=== PATIENT | female | born 1935 | race American Indian/Alaskan Native ===

== ENCOUNTER 2018-02-03 11:23 | Inpatient (IN) | payer OTHER ==
[2018-02-03 11:45] VITALS: BMI 26.2
--- NOTE | 2018-02-03 12:39 | PDOC ---
History of Present Illness - General Chief Complaint: Chest Pain Stated Complaint: BACK PAIN SHOULDER PAIN /PCP SENT Time Seen by Provider: 02/03/18 11:51 History Source: Patient, Family (daughter) Exam Limitations: No Limitations - History of Present Illness Initial Comments: 02/03/18 12:23 Pt is an 82 yo F with pmh of mitral regurgitation/prolapse s/p mitral valve replacement 2015, htn, hld sent to ED by Dr. Mckay. Per daughter pt had come back from [place] a month ago and since then she has been having intermittent shoulder pain which feels like a heavy weight on her bilateral shoulders and lower back pain which she cannot describe and lasts for about an hour. Pt experienced the pain over the weekend and per daughter, pt does not complain much about pain so she called Dr. Feliz and saw him today. At the office, Dr. Feliz noticed EKG changes and told pt to come to ED for admission. Pt admits to intermittent bilateral shoulder "pressure", intermittent bilateral lower back pain that does not radiate. Pain is relieved with rest. She also admits to shortness of breath with exertion however this has been going on for about 2 months. She denies chest pain, headache, changes in vision, fever, chills, cough, n/v/d, history of blood clots. She was started back up on Coumadin 3 weeks ago after YUAN showed what may have been vegetations. PCP: Dr. Brand Marshmallow Runner: Trini PMH: see hpi PSH: cholecystectomy, tubal ligation, mitral valve replacement Meds: Coumadin, metoprolol, losartan, lasix, statin Allergies: nkda Social: denies, social alcohol use. Daughter phone number: Past History - Past Medical History Allergies/Adverse Reactions: Allergies Allergy/AdvReac Type Severity Reaction Status Date / Time No Known Drug Allergies Allergy Verified 02/03/18 11:42 Home Medications: Ambulatory Orders Aspirin [ASA -] 81 mg PO DAILY 02/12/12 Acetaminophen [Tylenol] 650 mg PO Q6H PRN 02/21/15 Metoprolol Succinate [Toprol Xl] 50 mg PO DAILY 02/21/15 Simvastatin 40 mg PO DAILY 02/21/15 Albuterol 2.5/Ipratropium 0.5 [Duoneb -] 1 amp NEB Q6H PRN #1 amp 02/28/15 Azithromycin [Zithromax Z-LORA (5 DAYS) -] 250 mg PO ASDIR 03/18/15 Furosemide [Lasix -] 40 mg PO DAILY 03/18/15 Anemia: No Asthma: No Cancer: No Cardiac Disorders: Yes (PERICARDIAL EFFUSION) CVA: No COPD: No CHF: No Dementia: No Diabetes: No GI Disorders: No Disorders: No HTN: Yes Hypercholesterolemia: Yes Liver Disease: No Seizures: No Thyroid Disease: No - Surgical History Abdominal Surgery: Yes Appendectomy: No Cardiac Surgery: Yes (VALVE REPLACEMENT.) Cholecystectomy: Yes Lung Surgery: No Neurologic Surgery: No Orthopedic Surgery: No - Suicide/Smoking/Psychosocial Hx Smoking History: Never smoked Have you smoked in the past 12 months: No Hx Alcohol Use: No Drug/Substance Use Hx: No Substance Use Type: None Hx Substance Use Treatment: No Review of Systems - Review of Systems Able to Perform ROS?: Yes Constitutional: No: Chills, Fever, Weakness HEENTM: No: Blurred Vision, Recent change in vision, Throat Pain Respiratory: Yes: SOB with Exertion. No: Cough, SOB at Rest, Wheezing, Productive cough, Hemoptysis Cardiac (ROS): No: Chest Pain, Lightheadedness, Palpitations, Syncope ABD/GI: No: Constipated, Diarrhea, Nausea, Rectal Bleeding, Vomiting, Abdominal cramping : No: Burning, Dysuria, Frequency, Flank Pain Musculoskeletal: Yes: Back Pain. No: Joint Pain, Muscle Pain, Muscle Weakness Integumentary: No: Rash Neurological: Yes: Numbness (chronic numbness in hands). No: Headache, Paresthesia, Tingling, Tremors, Weakness, Unsteady Gait Hematologic/Lymphatic: No: Blood Clots *Physical Exam - Vital Signs Last Vital Signs Temp Pulse Resp BP Pulse Ox 98.8 F 67 16 166/66 98 02/03/18 11:42 02/03/18 11:42 02/03/18 11:42 02/03/18 11:42 02/03/18 11:42 - Physical Exam Comments: 02/03/18 13:06 Pt sitting in bed comfortably with daughter at bedside General Appearance: Yes: Nourished, Appropriately Dressed. No: Apparent Distress HEENT: positive: EOMI, CHICA, Pharynx Normal, Hearing Grossly Normal. negative: Pale Conjunctivae, Scleral Icterus (R), Scleral Icterus (L), Pharyngeal Erythema , Tonsillar Exudate Neck: positive: Trachea midline, Supple. negative: Carotid bruit, Lymphadenopathy (R), Lymphadenopathy (L) Respiratory/Chest: positive: Lungs Clear, Normal Breath Sounds. negative: Labored Respiration, Crackles, Rales, Rhonchi, Stridor, Wheezing, Plerual Rub Cardiovascular: positive: Regular Rhythm, Regular Rate, S1, S2. negative: Edema , JVD, Murmur, Bradycardia, Tachycardia, Diastolic Murmur, Systolic Murmur Vascular Pulses: Carotid (R): 2+, Carotid (L): 2+, Dorsalis-Pedis (R): 2+, Doralis-Pedis (L): 2+ Gastrointestinal/Abdominal: positive: Normal Bowel Sounds, Soft, Other (No pulsatile mass palpated). negative: Distended, Guarding, Rebound, Tenderness Musculoskeletal: positive: Normal Inspection. negative: CVA Tenderness, CVA Tenderness (R), CVA Tenderness (L), Vertebral Tenderness Extremity: positive: Normal Capillary Refill, Other (Distal calf tenderness along veins (chronic)). negative: Pedal Edema, Swelling Integumentary: positive: Normal Color, Dry, Warm. negative: Cyanotic, Jaundice , Mottled, Pale, Cold, Clammy, Hives, Rash, Swelling, Ecchymosis, Bruising (No bruising on lower back or upper back) Neurologic: positive: talent acquisition lead II-XII NML intact, Fully Oriented, Alert, Normal Mood/ Affect, Normal Response, Motor Strength 5/5. negative: Facial Droop, Sensory Deficit Heart Score/ECG Review - History History: Slightly suspicious - Electrocardiogram EKG: Non specific repolarization disturbance - Age Age: >/= 65 - Risk Factors Risk Factors Heart Score: Yes Hx Hypercholesterolemia, Yes Hx Hypertension Based on the list above the patient has:: 1-2 risk factors - Troponin Troponin: </= normal limit - Score Heart Score - Total: 4 - ECG Intrepretation Rhythm: Regular Rhythm - Brewerton Brewerton: Left Brewerton Deviation - P and WV Prominent R with upright T in V1 (true posterior TX): No Delta Wave(s) Present: No - ST and T Flattened T Waves: Yes ED Treatment Course - LABORATORY CBC & Chemistry Diagram: 02/03/18 12:47 02/03/18 12:47 - RADIOLOGY Radiology Studies Ordered: Category Date Time Status CHEST X-RAY PORTABLE* [RAD] Stat Radiology 02/03/18 12:20 Ordered Medical Decision Making - Medical Decision Making 02/03/18 12:43 Pt is an 82 yo F with pmh of mitral regurgitation/prolapse s/p mitral valve replacement 2014, htn, hld sent to ED by Dr. Mckay. Per daughter pt had come back from [place] a month ago and since then she has been having intermittent shoulder pain which feels like a heavy weight on her bilateral shoulders and lower back pain which she cannot describe and lasts for about an hour. Vitals: wnl PE: benign, clear breath sounds, no leg swelling, normal heart sounds, normal neurological exam, no palpable masses in abdomen Rule out [place], AAA, valvular pathology EKG: ED today: nsr, widened QRS, No LEONARDO or depressions, QT normal, WV normal, T wave inversion in V3, V2, V1. compared to office ekg 1 month ago: Flattened T wave in V1, aVR, aVL, V1, V5 , V6. T wave inversions in V2, V3 HEART score 4. ASA not given at this time because pt was not complaining of chest pain. -Cardiac profile, EKG, pt/inr, cbc, cmp, cxr 02/03/18 12:44 Bedside U/S abdomen showed aorta diameter <3cm. Low suspicion for AAA causing back pain. 02/03/18 14:31 Troponin 0.03, INR 4.04. all other labs wnl. UA negative. Pt will be admitted with consultation to Dr. Beard *DC/Admit/Observation/Transfer Diagnosis at time of Disposition: H/O mitral valve replacement, EKG abnormalities, ACS (acute coronary syndrome) - Discharge Dispostion Condition at time of disposition: Stable Decision to Admit order: Yes - Referrals - Patient Instructions - Post Discharge Activity
[2018-02-03 12:58] LABS: BASO % 1.3 % (0-2.0); EOS % 1.7 % (0-4.5); HEMATOCRIT 40.7 % (32.4-45.2); HEMOGLOBIN 13.9 GM/dL (10.7-15.3); LYMPH % 22.6 % (8-40); MCH 30.4 pg (25.7-33.7); MCHC 34.1 g/dl (32.0-36.0); MEAN PLT VOLUME 9.1 fl (7.5-11.1); MONO % 8.8 % (3.8-10.2); NEUT % 65.6 % (42.8-82.8); PLATELET COUNT 156 K/MM3 (134-434); RBC 4.57 M/mm3 (3.60-5.2); RDW 14.4 % (11.6-15.6); WHITE BLOOD COUNT 9.1 K/mm3 (4.0-10.0)
[2018-02-03 13:09] LABS: PROTHROMBIN TIME (PATIENT) 45.7 SEC (9.7-13.0)
[2018-02-03 13:12] LABS: INR 4.04 (0.83-1.09)
[2018-02-03 14:05] LABS: ALBUMIN 3.2 g/dl (3.4-5.0); ALK PHOS 59 U/L (45-117); ANION GAP 6 MMOL/L (8-16); BILIRUBIN,TOTAL 0.5 mg/dL (0.2-1); BLOOD UREA NITROGEN 17 mg/dL (7-18); CALCIUM 8.4 mg/dL (8.5-10.1); CHLORIDE 105 mmol/L (98-107); CO2 29 mmol/L (21-32); CREATININE 0.6 mg/dL (0.55-1.3); GLUCOSE,RANDOM 82 mg/dL (74-106); POTASSIUM 3.8 mmol/L (3.5-5.1); SGOT/AST 50 U/L (15-37); SGPT/ALT 32 U/L (13-61); SODIUM 140 mmol/L (136-145); TOT PROT 6.8 g/dl (6.4-8.2)
--- NOTE | 2018-02-03 14:23 | PDOC ---
Attending Attestation - Resident Resident Name: Nettie Ray - ED Attending Attestation I have performed the following: I have examined & evaluated the patient, The case was reviewed & discussed with the resident, I agree w/resident's findings & plan - HPI HPI: 02/03/18 14:19 82y/o F h/o CAD and valvular heart disease sent from Dr. Feliz office 2/2 EKG changes in the setting of weeks of shoulder/back/chest pain. - Physicial Exam PE: 02/03/18 14:23 VS wnl, slightly elevated BP agree with exam findings heart regular, lungs clear no edema or calf ttp no reproducible spine ttp - Medical Decision Making 02/03/18 14:23 82y/o F with h/o CAD with presentation concerning for unstable angina. labs ekg/cxr tele admission with cards eval Heart Score/ECG Review #1 ECG reviewed & interpreted by me at: 11:33 General ECG Interpretation: Sinus Rhythm, Normal Rate (64), Normal Intervals ( qtc 363), No acute ischemic changes (t wave flattening I/AVL) Compared to previous ECG there are: Changes noted (office EKG showed TWI I/AVL and V3-V6, prior EKG from 12/2017 was normal)
[2018-02-03 15:30] LABS: URINE APPEARANCE CLEAR; URINE BILIRUBIN NEGATIVE (<2.0 mg/dL); URINE COLOR LTYELLOW; URINE GLUCOSE (UA) NEGATIVE (NEGATIVE); URINE KETONE NEGATIVE (NEGATIVE); URINE LEUK ESTERASE TRACE (NEGATIVE); URINE NITRITE NEGATIVE (NEGATIVE); URINE PROTEIN NEGATIVE (NEGATIVE); URINE UROBILINOGEN NEGATIVE mg/dL (0.2-1.0)
[2018-02-03 15:40] LABS: EPI CELLS RARE /HPF (FEW)
[2018-02-03] MEDS ORDERED: ACETAMINOPHEN 325 MG TABLET (FP) PO PRN (20:38)
[2018-02-03] MEDS ORDERED: ALBUTEROL SO4 2.5/IPRATROPIUM 0.5 INH SOL 3 ML VIAL.NEB. NEB PRN (20:38)
[2018-02-03] MEDS ORDERED: PHYTONADIONE 5 MG TABLET PO ONE (21:15)
[2018-02-03] MEDS: POTASSIUM CHLORIDE TABS 20 MEQ TABLET.ER (FP) PO SCH (22:59)
[2018-02-04 05:33] LABS: BASO % 1.3 % (0-2.0); EOS % 2.3 % (0-4.5); HEMATOCRIT 39.4 % (32.4-45.2); HEMOGLOBIN 13.3 GM/dL (10.7-15.3); MCH 30.4 pg (25.7-33.7); MCHC 33.9 g/dl (32.0-36.0); MEAN CELL VOLUME 89.9 fl (80-96); MEAN PLT VOLUME 8.6 fl (7.5-11.1); MONO % 8.7 % (3.8-10.2); NEUT % 57.7 % (42.8-82.8); PLATELET COUNT 137 K/MM3 (134-434); RBC 4.38 M/mm3 (3.60-5.2); RDW 13.8 % (11.6-15.6); WHITE BLOOD COUNT 7.4 K/mm3 (4.0-10.0)
[2018-02-04 05:44] LABS: INR 3.36 (0.83-1.09)
--- NOTE | 2018-02-04 10:14 | EKG ---
Test Reason : Blood Pressure : / mmHG Vent. Rate : 064 BPM Atrial Rate : 064 BPM P-R Int : 180 ms QRS Dur : 108 ms QT Int : 352 ms P-R-T Axes : 058 -31 078 degrees QTc Int : 363 ms NORMAL SINUS RHYTHM LEFT AXIS DEVIATION NONSPECIFIC T WAVE ABNORMALITY ABNORMAL ECG WHEN COMPARED WITH ECG OF 18-MAR-2015 19:10, QUESTIONABLE CHANGE IN QRS AXIS QT HAS SHORTENED Confirmed by PRETTY STOVALL, CHEN ([id number]) on 02/04/2018 10:14:13 AM Referred By: Confirmed By:CHEN OLSEN MD
[2018-02-04] MEDS: ASPIRIN 81 MG CHEWABLE TABLETS PO SCH (11:13)
[2018-02-04] MEDS: POTASSIUM CHLORIDE TABS 20 MEQ TABLET.ER (FP) PO SCH (11:13)
[2018-02-04] MEDS: FUROSEMIDE 40 MG TABLET (FP) PO SCH (11:14)
--- NOTE | 2018-02-04 11:14 | PN ---
Progress Note, Physician Chief Complaint: 82 year old patient comes in with new complaints of shoulder pain and heaviness. History of Present Illness: Mitral Valve replacement (#25 CE pericardial) 01/27/2015 Dr. Ulysses Fitch Cardiac Catheterization: 01/26/15 Left Main short LAD proximal 30%, mid 40%, distal 40% D1 70% small caliber vessel LCx luminal irregularities OM1 40% Ramus 80% small caliber vessel RCA ostium 50%, mid 40% Ongoing medical problems ASHD negative MIBI stress tets 2011 CHF diastolic Noncompliance DM FrequentVPC's 11% of all QRS complexes 2011 HTN Mitral valve prolapse P-2 posterior leaflet. 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 Fitch - [facility] Echo showed normal function of prosthetic mitral valve with mean gradient of 2.6 mmHg. September 2016 YUAN showed reduced opening of prosthetic mitral valve with build up of possible thrombosis; restart anti-coagulation with coumadin. [facility] 2017 - Current Medication List Current Medications: Active Medications Acetaminophen (Tylenol -) 650 mg PO Q6H PRN PRN Reason: PAIN LEVEL 1 - 3 Albuterol/Ipratropium (Duoneb -) 1 amp NEB Q6H PRN PRN Reason: SHORTNESS OF BREATH Aspirin (Asa -) 81 mg PO DAILY [facility] Atorvastatin Calcium (Lipitor -) 20 mg PO HS PITER Furosemide (Lasix -) 40 mg PO DAILY [facility] Metoprolol Succinate (Toprol Xl -) 50 mg PO DAILY [facility] Potassium Chloride (K-Dur -) 40 meq PO DAILY [facility] Last Admin: 02/03/18 22:59 Dose: 40 meq - Objective Vital Signs: Vital Signs Temperature 97.9 F 02/04/18 08:45 Pulse Rate 76 02/04/18 08:45 Respiratory Rate 18 02/04/18 08:45 Blood Pressure 141/68 02/04/18 08:45 O2 Sat by Pulse Oximetry (%) 98 02/04/18 08:45 Eyes: Yes: WNL, Conjunctiva Clear, EOM Intact HENT: Yes: WNL, Atraumatic, Normocephalic Neck: Yes: WNL, Supple, Trachea Midline Cardiovascular: Yes: WNL, Regular Rate and Rhythm Respiratory: Yes: WNL, Regular, CTA Bilaterally Gastrointestinal: Yes: WNL, Normal Bowel Sounds Genitourinary: Yes: WNL Musculoskeletal: Yes: WNL Extremities: Yes: WNL Edema: No Integumentary: Yes: WNL Neurological: Yes: WNL, Alert, Oriented ...Motor Strength: WNL Psychiatric: Yes: WNL Labs: CBC, BMP 02/04/18 05:25 02/03/18 12:47 INR, PTT INR 3.36 (0.83-1.09) H 02/04/18 05:25 Assessment/Plan For 272.1: PURE HYPERGLYCERIDEMIA: I would recommend obtaining fasting lipid profile to reassure that LDL is below 100 mg/dl. If LDL is above 100 mg/dl I would recommend pharmacological treatment. Due to multiple risk factors for ASHD, I would recommend ASA 81 mg PO QD for primary prevention. Asymptomatic Frequent VPC's on 24 Holter in the setting of negative MIBI stress tets. I would recommend continuation of Atenolol and routine f/u. During today visit patient has no evidence of VPC's. In regards to patient education, signs and symptoms of both ACS and heart failure including but not limited to SOB, PND, VELASQUEZ, chest pressure or pain, nausea, arm or neck pain and weight gain reviewed. Patient was screened for tobacco use and unhealthy alcohol use, using a systemic screening method. Cessation counseling intervention was provided for tobacco and unhealthy alcohol users. Bioprosthetic mitral valve. I would recommend infectious endocarditis prophylaxis. Patient was advised to proceed to ER if she develops worsening sob/ chest pain. Repeat echo showed normal function of prosthetic MV with mean gradient of 2.6 mmHg. I would recommend stopping coumadin. Patient was advised to attention to symptoms of heart failure and shortness of breath, if patient develops these symptoms she was advised to proceed to the ER. Patient will be scheduled for 6 month follow up and echo to evaluate mitral valve. New complaints of dyspnea on exertion and SOB. Echocardiogram done on December 26, 2017 showed increase mean pressure gradient across bioprostatic mitral valve to 7.2 mmHg consistent with moderate mitral valve stenosis. Since patient has history of noncompliance and partial thrombosis of bioprostatic mitral valve, I would recommend YUAN to be done at [facility]. Patient is non-compliant with medical treatment and follow-up appointments. YUAN showed reduced opening of prosthetic mitral valve with build up of possible thrombosis; restart anti-coagulation with coumadin. [facility] 2017 Patient is seen by Dr. Fitch. I would recommend continuation of anti- coagulation and follow-up YUAN in 3-6 months. Patient declined YUAN in 3 months, since she will be traveling to her [place], Patient asked for YUAN in 6 months, She understands the risks associated with her decision. Patient was advised to proceed to ER if she experiences SOB and chest pain. Patient was advised yesterday (when she called informing us about the complaints )to go to the ER but refused. . EKG obtained today showed new lateral leads EKG changes. Since patient had non-obstructive large vessel disease and small vessel obstructive disease, I would recommend admission to hospital and cardiac catheterization for further evaluation. Hold Coumadine start IV heparine when INR below 2.0
--- NOTE | 2018-02-04 13:08 | ECHO ---
Name: NEREYDA FELDMAN Exam:Adult Echocardiogram Study Date: 02/04/2018 11:38 AM Age: 82 yrs Reason For Study: Aortics Stenosis Height: 63 in Weight: 148 lb BSA: 1.7 m2 MMode/2D Measurements & Calculations IVSd: 0.90 cm Ao root diam: 2.9 cm LVIDd: 4.6 cm LA dimension: 3.6 cm LVIDs: 3.2 cm ACS: 1.5 cm LVPWd: 0.72 cm EDV(Teich): 96.2 ml LVOT diam: 2.1 cm ESV(Teich): 39.8 ml TAPSE: 1.6 cm RV S Juan Antonio: 9.5 cm/sec Doppler Measurements & Calculations MV E max juan antonio: 102.7 cm/sec MVA(VTI): 1.3 cm2 MV A max juan antonio: 125.4 cm/sec MV V2 max: 126.2 cm/sec MV E/A: 0.82 MV max P.4 mmHg MV dec time: 0.40 sec MV V2 mean: 77.7 cm/sec MV mean P.8 mmHg MV V2 VTI: 50.1 cm AI P1/2t: 471.6 msec AI max juan antonio: 377.6 cm/sec AI max P.0 mmHg AI dec slope: 234.5 cm/sec2 LV V1 max P.5 mmHg SV(LVOT): 63.3 ml LV V1 mean P.1 mmHg LV V1 max: 79.5 cm/sec LV V1 mean: 47.3 cm/sec LV V1 VTI: 18.7 cm TR max juan antonio: 232.8 cm/sec PI end-d juan antonio: 88.0 cm/sec TR max P.7 mmHg Med Peak E' Juan Antonio: 3.7 cm/sec Med E/e': 27.7 Lat Peak E' Juan Antonio: 4.4 cm/sec Lat E/e': 23.4 Procedure A two-dimensional transthoracic echocardiogram with color flow and Doppler was performed. Left Ventricle The left ventricular size, thickness and function are normal. The left ventricular ejection fraction is normal. Septal motion is consistent with post-operative state. Right Ventricle The right ventricle is normal in size and function. Atria Normal left and right atrial size and function. Mitral Valve There is a bioprosthetic mitral valve. The prosthetic mitral valve is not well visualized. There is m ild mitral stenosis. There is no mitral regurgitation noted. Tricuspid Valve There is mild to moderate tricuspid valve thickening. There is no tricuspid stenosis. There is mild t ricuspid regurgitation. Right ventricular systolic pressure is normal. Aortic Valve The aortic valve is normal in structure and function. No hemodynamically significant valvular aortic stenosis. Mild aortic regurgitation. Pulmonic Valve The pulmonic valve is not well visualized. There is no pulmonic valvular stenosis. Mild pulmonic valv ular regurgitation. Great Vessels The aortic root is normal size. Pericardium/Pleura There is no pericardial effusion. Interpretation Summary The left ventricular size, thickness and function are normal The left ventricular ejection fraction is normal. Septal motion is consistent with post-operative state. There is a bioprosthetic mitral valve. The prosthetic mitral valve is not well visualized. There is mild tricuspid regurgitation. Right ventricular systolic pressure is normal. There is mild mitral stenosis. There is no mitral regurgitation noted. Mild aortic regurgitation. MD Juan Carlos Mejia 02/04/2018 01:07 PM
[2018-02-04] MEDS: ATORVASTATIN CA 20 MG TABLET (FP) PO SCH (22:12)
[2018-02-04] MEDS ORDERED: PHYTONADIONE 5 MG TABLET PO ONE (22:28)
--- NOTE | 2018-02-04 22:36 | HP ---
Admitting History and Physical - Admission History of Present Illness: 82 yo F with pmh of mitral regurgitation/prolapse s/p mitral valve replacement 2015, htn, hld sent to ED by Dr. Mckay. Per daughter pt had come back from [place] a month ago and since then she has been having intermittent shoulder pain which feels like a heavy weight on her bilateral shoulders and lower back pain which she cannot describe and lasts for about an hour. She admits progressive SOB and decreased tolerance for ADLs-- She was referred back to Cardiology from our office and EKG changes prompted referral to ER At ER: Rule out SC, AAA, valvular pathology EKG: ED today: nsr, widened QRS, No LEONARDO or depressions, QT normal, FL normal, T wave inversion in V3, V2, V1. compared to office ekg 1 month ago: Flattened T wave in V1, aVR, aVL, V1, V5 , V6. T wave inversions in V2, V3 HEART score 4. ASA not given at this time because pt was not complaining of chest pain. 02/03/18 12:44 Bedside U/S abdomen showed aorta diameter <3cm. Low suspicion for AAA causing back pain. 02/03/18 14:31 Troponin 0.03, INR 4.04. all other labs wnl. UA negative. Pt will be admitted with consultation to Dr. Beard History Source: Family Member, Medical Record, Caregiver Limitations to Obtaining History: No Limitations - Past Medical History Cardiovascular: Yes: CHF, HTN, Hyperlipdemia, Mitral Insufficiency, Murmur, Other (MITRAL VALVE REPLACEMENT) Reproductive: Yes: Postmenopausal - Past Surgical History Past Surgical History: Yes: Cholecystectomy, Valve Replacement - Smoking History Smoking history: Never smoked Have you smoked in the past 12 months: No - Alcohol/Substance Use Hx Alcohol Use: No - Social History ADL: Independent Occupation: never worked, from [place], here 14 years History of Recent Travel: No Home Medications - Allergies Allergies/Adverse Reactions: Allergies Allergy/AdvReac Type Severity Reaction Status Date / Time No Known Drug Allergies Allergy Verified 02/03/18 11:42 - Home Medications Home Medications: Ambulatory Orders Aspirin [ASA -] 81 mg PO DAILY 02/12/12 Acetaminophen [Tylenol] 650 mg PO Q6H PRN 02/21/15 Metoprolol Succinate [Toprol Xl] 50 mg PO DAILY 02/21/15 Simvastatin 40 mg PO DAILY 02/21/15 Albuterol 2.5/Ipratropium 0.5 [Duoneb -] 1 amp NEB Q6H PRN #1 amp 02/28/15 Azithromycin [Zithromax Z-LORA (5 DAYS) -] 250 mg PO ASDIR 03/18/15 Furosemide [Lasix -] 40 mg PO DAILY 03/18/15 Family Disease History - Family Disease History Family Disease History: Heart Disease: Father, Mother Review of Systems - Review of Systems Constitutional: reports: No Symptoms. denies: Chills, Diaphoresis, Fever, Lethargy Eyes: reports: No Symptoms HENT: reports: No Symptoms Neck: reports: No Symptoms Cardiovascular: reports: Shortness of Breath. denies: Chest Pain, Edema, Palpitations Respiratory: reports: SOB, SOB on Exertion Gastrointestinal: reports: Abdominal Pain (epigastric). denies: Dysphagia, Indigestion, Melena, Rectal Bleeding Genitourinary: reports: No Symptoms Breasts: reports: No Symptoms Reported Musculoskeletal: reports: No Symptoms Integumentary: reports: No Symptoms Neurological: reports: No Symptoms Endocrine: reports: No Symptoms Psychiatric: reports: No Symptoms, Altered Sleep Pattern Physical Examination Vital Signs: Vital Signs Temperature 97.6 F 02/04/18 17:00 Pulse Rate 58 L 02/04/18 17:00 Respiratory Rate 20 02/04/18 17:00 Blood Pressure 142/73 02/04/18 17:00 O2 Sat by Pulse Oximetry (%) 98 02/04/18 11:21 Constitutional: Yes: Well Nourished, No Distress, Calm Eyes: Yes: Conjunctiva Clear, EOM Intact HENT: Yes: Atraumatic, Normocephalic Neck: Yes: Supple, Trachea Midline ...Rectal Exam: Yes: Deferred Renal/: Yes: WNL Breast(s): Yes: WNL Musculoskeletal: Yes: WNL Extremities: Yes: WNL Edema: No Peripheral Pulses WNL: Yes Integumentary: Yes: WNL Neurological: Yes: Alert, Oriented, Pre-Existing Deficit ...Motor Strength: WNL Psychiatric: Yes: Alert, Oriented Labs: CBC, BMP 02/04/18 05:25 02/03/18 12:47 Problem List - Problems (1) EKG abnormalities Code(s): R94.31 - ABNORMAL ELECTROCARDIOGRAM [ECG] [EKG] (2) H/O mitral valve replacement Code(s): Z95.2 - PRESENCE OF PROSTHETIC HEART VALVE (3) Coumadin toxicity Code(s): T45.511A - POISONING BY ANTICOAGULANTS, ACCIDENTAL, INIT (4) Aortic regurgitation Code(s): I35.1 - NONRHEUMATIC AORTIC (VALVE) INSUFFICIENCY (5) Congestive heart failure (CHF) Code(s): I50.9 - HEART FAILURE, UNSPECIFIED (6) Dyspnea on effort Code(s): R06.09 - OTHER FORMS OF DYSPNEA
--- NOTE | 2018-02-04 22:51 | PN ---
Progress Note (short form) - Note Progress Note: patient seen and examined in room daughter at bedside case discussed with daughter POC discussed with daughter Vital Signs Period Temp Pulse Resp BP Sys/Cook Pulse Ox Last 24 Hr 97.6 F-98.1 F 58-76 18-20 114-142/63-78 98-98 neck no JVD Heart S1/S2 regular lungs cear bilat abd soft non tender ext no edema / no calf tenderness + 2 pulses CBC, BMP 02/04/18 05:25 02/03/18 12:47 Troponin, BNP 02/03/18 23:31 Troponin I 0.04 INR, PTT INR 3.36 (0.83-1.09) H 02/04/18 05:25 admission INR 4.0 was given 5 mg Vitamin K last night Active Medications Acetaminophen (Tylenol -) 650 mg PO Q6H PRN PRN Reason: PAIN LEVEL 1 - 3 Last Admin: 02/04/18 22:12 Dose: 650 mg Albuterol/Ipratropium (Duoneb -) 1 amp NEB Q6H PRN PRN Reason: SHORTNESS OF BREATH Aspirin (Asa -) 81 mg PO DAILY [facility] Last Admin: 02/04/18 11:13 Dose: 81 mg Atorvastatin Calcium (Lipitor -) 20 mg PO HS [facility] Last Admin: 02/04/18 22:12 Dose: 20 mg Furosemide (Lasix -) 40 mg PO DAILY [facility] Last Admin: 02/04/18 11:14 Dose: 40 mg Metoprolol Succinate (Toprol Xl -) 50 mg PO DAILY [facility] Last Admin: 02/04/18 11:14 Dose: 50 mg Potassium Chloride (K-Dur -) 40 meq PO DAILY [facility] Last Admin: 02/04/18 11:13 Dose: 40 meq # Dyspnea reduced opening of prosthetic mitral valve clinical decompensation plan per patient s daughter will be to transfer to [facility] for cardiac cath # Coumadin toxicity correct slowly aim to INR 2 -- will discuss further with Cardiology Problem List - Problems (1) EKG abnormalities Code(s): R94.31 - ABNORMAL ELECTROCARDIOGRAM [ECG] [EKG] (2) H/O mitral valve replacement Code(s): Z95.2 - PRESENCE OF PROSTHETIC HEART VALVE (3) Coumadin toxicity Code(s): T45.511A - POISONING BY ANTICOAGULANTS, ACCIDENTAL, INIT (4) Aortic regurgitation Code(s): I35.1 - NONRHEUMATIC AORTIC (VALVE) INSUFFICIENCY (5) Congestive heart failure (CHF) Code(s): I50.9 - HEART FAILURE, UNSPECIFIED (6) Dyspnea on effort Code(s): R06.09 - OTHER FORMS OF DYSPNEA
[2018-02-05 06:18] LABS: BASO % 1.2 % (0-2.0); EOS % 2.9 % (0-4.5); HEMATOCRIT 38.5 % (32.4-45.2); HEMOGLOBIN 12.9 GM/dL (10.7-15.3); LYMPH % 30.7 % (8-40); MCH 29.9 pg (25.7-33.7); MCHC 33.5 g/dl (32.0-36.0); MEAN CELL VOLUME 89.4 fl (80-96); MEAN PLT VOLUME 8.6 fl (7.5-11.1); MONO % 9.3 % (3.8-10.2); NEUT % 55.9 % (42.8-82.8); PLATELET COUNT 129 K/MM3 (134-434); RDW 14.2 % (11.6-15.6); WHITE BLOOD COUNT 7.5 K/mm3 (4.0-10.0)
[2018-02-05 06:40] LABS: INR 1.99 (0.83-1.09); PROTHROMBIN TIME (PATIENT) 22.5 SEC (9.7-13.0)
[2018-02-05 07:06] LABS: ANION GAP 5 MMOL/L (8-16); BLOOD UREA NITROGEN 17 mg/dL (7-18); CALCIUM 8.1 mg/dL (8.5-10.1); CHLORIDE 107 mmol/L (98-107); CHOLESTEROL 167 mg/dL (50-200); CO2 29 mmol/L (21-32); CREATININE 0.7 mg/dL (0.55-1.3); GLUCOSE,RANDOM 96 mg/dL (74-106); HDL CHOLESTEROL 79 mg/dL (40-60); POTASSIUM 4.2 mmol/L (3.5-5.1); SODIUM 141 mmol/L (136-145); TRIGLYCERIDES 84 mg/dL (0-150)
[2018-02-05] MEDS: ASPIRIN 81 MG CHEWABLE TABLETS PO SCH (09:25)
[2018-02-05] MEDS: POTASSIUM CHLORIDE TABS 20 MEQ TABLET.ER (FP) PO SCH (09:25)
[2018-02-05] MEDS: FUROSEMIDE 40 MG TABLET (FP) PO SCH (09:25)
--- NOTE | 2018-02-05 09:35 | PN ---
Progress Note, Physician Chief Complaint: PT A&OX3; ambulates without chest pain. Her daughter is at bedside. History of Present Illness: Pt is an 82 yo F (b. Jonathan), with pmh of mitral regurgitation/prolapse s/p mitral valve replacement 2014, htn, hld sent to ED by Dr. Mckay. Per daughter pt had come back from [place] a month ago and since then she has been having intermittent shoulder pain which feels like a heavy weight on her bilateral shoulders and lower back pain which she cannot describe and lasts for about an hour. Pt experienced the pain over the weekend and per daughter, pt does not complain much about pain so she called Dr. Mejia and saw him today. At the office, Dr. Feliz noticed EKG changes and told pt to come to ED for admission. Pt admits to intermittent bilateral shoulder "pressure", intermittent bilateral lower back pain that does not radiate. Pain is relieved with rest. She also admits to shortness of breath with exertion however this has been going on for about 2 months. She denies chest pain, headache, changes in vision, fever, chills, cough, n/v/d, history of blood clots. She was started back up on Coumadin 3 weeks ago after YUAN showed what may have been vegetations. PCP: Dr. Souza Automatic Chief: Jackie PMH: see hpi PSH: cholecystectomy, tubal ligation, mitral valve replacement Meds: Coumadin, metoprolol, losartan, lasix, statin Allergies: nkda Social: denies, social alcohol use. Mitral valve prolapse P-2 posterior leaflet. Mod-severe MR YUAN 2014 [facility] MV stenosis /thrombosis partial immobilization of prosthetic MV on YUAN RX with Coumadin 2014 Dr. Fitch - [facility] Echo showed normal function of prosthetic mitral valve with mean gradient of 2.6 mmHg. September 2016 YUAN showed reduced opening of prosthetic mitral valve with build up of possible thrombosis; restart anti-coagulation with coumadin. [facility] 2017 - Current Medication List Current Medications: Active Medications Acetaminophen (Tylenol -) 650 mg PO Q6H PRN PRN Reason: PAIN LEVEL 1 - 3 Last Admin: 02/04/18 22:12 Dose: 650 mg Albuterol/Ipratropium (Duoneb -) 1 amp NEB Q6H PRN PRN Reason: SHORTNESS OF BREATH Aspirin (Asa -) 81 mg PO DAILY [facility] Last Admin: 02/05/18 09:25 Dose: 81 mg Atorvastatin Calcium (Lipitor -) 20 mg PO HS [facility] Last Admin: 02/04/18 22:12 Dose: 20 mg Furosemide (Lasix -) 40 mg PO DAILY [facility] Last Admin: 02/05/18 09:25 Dose: 40 mg Metoprolol Succinate (Toprol Xl -) 50 mg PO DAILY [facility] Last Admin: 02/05/18 09:25 Dose: 50 mg Potassium Chloride (K-Dur -) 40 meq PO DAILY [facility] Last Admin: 02/05/18 09:25 Dose: 40 meq - Objective Vital Signs: Vital Signs Temperature 98 F 02/05/18 01:21 Pulse Rate 55 L 02/05/18 01:21 Respiratory Rate 20 02/05/18 01:21 Blood Pressure 121/54 L 02/05/18 01:21 O2 Sat by Pulse Oximetry (%) 98 02/04/18 19:00 Constitutional: Yes: Calm Eyes: Yes: WNL HENT: Yes: WNL Neck: Yes: WNL Cardiovascular: Yes: Regular Rate and Rhythm, Murmur (2/6 systolic murmur, LSB-- >axilla), S1, S2 Respiratory: Yes: WNL Gastrointestinal: Yes: Soft ...Rectal Exam: Yes: Deferred Genitourinary: No: Anuria Breast(s): Yes: WNL Musculoskeletal: Yes: WNL Extremities: Yes: WNL Edema: No Peripheral Pulses WNL: Yes Integumentary: Yes: WNL Neurological: Yes: WNL Psychiatric: Yes: WNL Labs: CBC, BMP 02/05/18 05:30 02/05/18 05:30 INR, PTT INR 1.99 (0.83-1.09) H 02/05/18 05:30 Abnormal Lab Results 02/05/18 02/05/18 02/05/18 05:30 05:30 05:30 Plt Count 129 L PT with INR 22.50 H INR 1.99 H PTT (Actin FS) Anion Gap 5 L Calcium 8.1 L HDL Cholesterol 79 H 02/05/18 02/05/18 12:25 18:00 Plt Count PT with INR 18.20 H INR 1.61 H PTT (Actin FS) 37.5 H 160.8 H Anion Gap Calcium HDL Cholesterol Problem List - Problems (1) H/O prosthetic mitral valve Assessment/Plan: Pt for transfer to [facility] for coronary angiogram (ACS; EKG changes) and reevaluation of prosthetic mitral valve (?clot by recent YUAN) Start IV heparin (warfarin held due to INR >4; now 1.9). . (2) ACS (acute coronary syndrome) Assessment/Plan: Pt for transfer to [facility] for coronary angiogram. Code(s): I24.9 - ACUTE ISCHEMIC HEART DISEASE, UNSPECIFIED (3) Coumadin toxicity Assessment/Plan: warfarin held; now on IV heparin pending transfer for coronary angiogram, mitral valve reevaluation. Code(s): T45.511A - POISONING BY ANTICOAGULANTS, ACCIDENTAL, INIT (4) Dyspnea on effort Code(s): R06.09 - OTHER FORMS OF DYSPNEA (5) EKG abnormalities Code(s): R94.31 - ABNORMAL ELECTROCARDIOGRAM [ECG] [EKG] (6) Hyperlipidemia Assessment/Plan: on atorvastatin. lipid panel noted (LDL in 80s mg/dL). Mild increase in AST. Code(s): E78.5 - HYPERLIPIDEMIA, UNSPECIFIED
[2018-02-05] MEDS ORDERED: HEPARIN NA (PORCINE) 5,000 UNITS/ML 1ML VIAL IVPUSH PRN ×2 (10:39)
[2018-02-05] MEDS ORDERED: HEPARIN SOD,PORK IN 0.45% NACL 25,000 UNITS/500 ML INFUS.BAG IVPB SCH (10:45)
[2018-02-05] MEDS ORDERED: CLOPIDOGREL BISULFATE 300 MG TABLET PO ONE (11:00)
--- NOTE | 2018-02-05 11:18 | PN ---
Progress Note (short form) - Note Progress Note: patient seen and examined in room daughter at bedside case discussed with daughter POC discussed with daughter Vital Signs Period Temp Pulse Resp BP Sys/Cook Pulse Ox Last 24 Hr 97.6 F-98.1 F 58-76 18-20 114-142/63-78 98-98 neck no JVD Heart S1/S2 regular lungs cear bilat abd soft non tender ext no edema / no calf tenderness + 2 pulses CBC, BMP 02/05/18 05:30 02/05/18 05:30 INR, PTT INR 1.99 (0.83-1.09) H 02/05/18 05:30 Vit K 5mg last night CBC, BMP 02/04/18 05:25 02/03/18 12:47 Troponin, BNP 02/03/18 23:31 Troponin I 0.04 INR, PTT INR 3.36 (0.83-1.09) H 02/04/18 05:25 admission INR 4.0 was given 5 mg Vitamin K last night Active Medications Acetaminophen (Tylenol -) 650 mg PO Q6H PRN PRN Reason: PAIN LEVEL 1 - 3 Last Admin: 02/04/18 22:12 Dose: 650 mg Albuterol/Ipratropium (Duoneb -) 1 amp NEB Q6H PRN PRN Reason: SHORTNESS OF BREATH Aspirin (Asa -) 81 mg PO DAILY [facility] Last Admin: 02/05/18 09:25 Dose: 81 mg Atorvastatin Calcium (Lipitor -) 20 mg PO HS [facility] Last Admin: 02/04/18 22:12 Dose: 20 mg Furosemide (Lasix -) 40 mg PO DAILY [facility] Last Admin: 02/05/18 09:25 Dose: 40 mg Heparin Sodium (Porcine) (Heparin -) 1,000 unit IVPUSH PRN PRN PRN Reason: Heparin Heparin Sodium (Porcine) (Heparin -) 5,000 unit IVPUSH PRN PRN PRN Reason: Heparin HEPARIN SOD,PORK IN 0.45% NACL (Heparin-1/2ns 25,000 Units/500) 25,000 units in 500 mls @ 20 mls/hr IVPB TITR PITER; Protocol Metoprolol Succinate (Toprol Xl -) 50 mg PO DAILY [facility] Last Admin: 02/05/18 09:25 Dose: 50 mg Potassium Chloride (K-Dur -) 40 meq PO DAILY [facility] Last Admin: 02/05/18 09:25 Dose: 40 meq # Dyspnea reduced opening of prosthetic mitral valve clinical decompensation plan per patient s daughter will be to transfer to [facility] for cardiac cath # Coumadin toxicity correct slowly aim to INR 2 -- Per Cardiology now started on Heparin Arrangements for transfer as per Cardio Problem List - Problems (1) EKG abnormalities Code(s): R94.31 - ABNORMAL ELECTROCARDIOGRAM [ECG] [EKG] (2) H/O mitral valve replacement Code(s): Z95.2 - PRESENCE OF PROSTHETIC HEART VALVE (3) Coumadin toxicity Code(s): T45.511A - POISONING BY ANTICOAGULANTS, ACCIDENTAL, INIT (4) Aortic regurgitation Code(s): I35.1 - NONRHEUMATIC AORTIC (VALVE) INSUFFICIENCY (5) Congestive heart failure (CHF) Code(s): I50.9 - HEART FAILURE, UNSPECIFIED (6) Dyspnea on effort Code(s): R06.09 - OTHER FORMS OF DYSPNEA
[2018-02-05 12:55] LABS: INR 1.61 (0.83-1.09); PROTHROMBIN TIME (PATIENT) 18.2 SEC (9.7-13.0)
[2018-02-05 12:57] LABS: ACTIVATED PTT 37.5 SECONDS (25.2-36.5)
--- NOTE | 2018-02-05 14:30 | EKG ---
Test Reason : Blood Pressure : / mmHG Vent. Rate : 056 BPM Atrial Rate : 056 BPM P-R Int : 180 ms QRS Dur : 106 ms QT Int : 452 ms P-R-T Axes : 038 -31 065 degrees QTc Int : 436 ms SINUS BRADYCARDIA LEFT AXIS DEVIATION T WAVE ABNORMALITY, CONSIDER ANTEROLATERAL ISCHEMIA ABNORMAL ECG WHEN COMPARED WITH ECG OF 03-FEB-2018 11:33, T WAVE INVERSION NOW EVIDENT IN ANTEROLATERAL LEADS QT HAS LENGTHENED Confirmed by BRYAN STOVALL, SCAR ([id number]) on 02/05/2018 2:29:52 PM Referred By: EMORY DIETRICH Confirmed By:SCAR ADAMS MD
[2018-02-05 19:37] VITALS: BP 143/71; PULSE 58; TEMP 97.3
[2018-02-05] MEDS: ATORVASTATIN CA 20 MG TABLET (FP) PO SCH (21:00)
== END 2018-02-05 22:20 | disposition short-term general hospital (02) | DRG 307 ==
LOC: JER 11:23 → JERBED 14:28 → J4W 02-04 09:22 → OBSVTOIN 02-04 13:42 → J4W 02-04 17:30
PROVIDERS: ADMIT Family Medicine; ATTEND Family Medicine
DX: I34.8 Other nonrheumatic mitral valve disorders (principal); I50.30 Unspecified diastolic (congestive) heart failure; I24.9 Acute ischemic heart disease, unspecified; R94.31 Abnormal electrocardiogram [ECG] [EKG]; E78.5 Hyperlipidemia, unspecified; I25.10 Atherosclerotic heart disease of native coronary artery without angina pectoris; T45.511A Poisoning by anticoagulants, accidental (unintentional), initial encounter; I11.0 Hypertensive heart disease with heart failure; E11.9 Type 2 diabetes mellitus without complications; R06.09 Other forms of dyspnea; Z78.0 Asymptomatic menopausal state; Z95.1 Presence of aortocoronary bypass graft; Z91.14 Patient's other noncompliance with medication regimen
CPT/HCPCS: 36415; 71045-TC-FY; 80048; 80053; 80061; 81003; 81015; 82550; 83721; 84443; 84484; 85025; 85610; 85730; 93005; 93010; 93306-TC; 99285-25; G0378